=== PATIENT | male | born 1965 | race Caucasian/White ===

== ENCOUNTER 2023-01-24 15:36 | Emergency (ER) | payer OTHER, SELFPAY ==
[2023-01-24 15:42] VITALS: BP 160/104; PULSE 88; RESP 18; TEMP 37.2; O2SAT 96; BMI 33.2
[2023-01-24 15:58] VITALS: O2SAT 98
--- NOTE | 2023-01-24 16:25 | ED.GENADUL1 ---
HPI - General Adult General Chief complaint: Skin/Abscess/Foreign Body Stated complaint: poss faial infection Time Seen by Provider: 01/24/23 16:11 Source: patient Mode of arrival: walk-in History of Present Illness HPI narrative: swelling of the right cheek near the right nasal fold developed about 4 days ago. the right cheek and face has been slowly getting more swollen and became painful yesterday. It was much worse today so he decided to come to the ED for evaluation. No fever or chills. No toothache or dental complaints. He denied any involvement of the ears or eyes. No outer skin rash. Related Data Home Medications Medication Instructions Recorded Confirmed amlodipine 5 mg tablet 5 mg PO DAILY 01/24/23 01/24/23 buprenorphine 8 mg-naloxone 2 mg 1 film buccal DAILY 01/24/23 01/24/23 sublingual film clonidine HCl 0.1 mg tablet 0.1 mg PO BID 01/24/23 01/24/23 lisinopril 40 mg tablet 40 mg PO DAILY 01/24/23 01/24/23 naratriptan 2.5 mg tablet 2.5 mg PO DAILY PRN migraine 01/24/23 01/24/23 headache omeprazole 40 mg capsule,delayed 40 mg PO DAILY 01/24/23 01/24/23 release pramipexole 0.5 mg tablet 0.5 mg PO .QHS PRN migrain 01/24/23 01/24/23 prednisone 5 mg tablet 15 mg PO DAILY 01/24/23 01/24/23 sumatriptan succinate 100 mg tablet 100 mg PO DAILY PRN migraine 01/24/23 01/24/23 headache Previous Rx's Medication Instructions Recorded clindamycin HCl 150 mg capsule 450 mg PO QID 10 days #120 caps 01/24/23 (Cleocin HCl) oxycodone-acetaminophen 5 mg-325 1 tab PO Q6H PRN pain #20 tabs 01/24/23 mg tablet (Percocet) Allergies Allergy/AdvReac Type Severity Reaction Status Date / Time No Known Drug Allergies Allergy Verified 01/24/23 15:41 Exam Narrative Exam Narrative: Nurses notes and vital signs reviewed and patient is not hypoxic. afebrile General: Well-appearing and in no apparent distress. Skin: Warm, dry, no pallor noted. Head: Swelling and tenderness noted to the right cheek, extending from the right nasal fold to underneath the right eye and down to the right jaw. Remainder of the face and scalp are normocephalic, atraumatic. Neck: Supple, non-tender. Eye: Pupils are equal, round and EOMI. No scleral icterus. Ears, Nose, Mouth, and Throat: TM are clear, no nasal mucosal hypertrophy. Oral mucosa is moist, no posterior oropharynx erythema, uvula is mid-line Cardiovascular: Regular Rate and Rhythm without murmur, gallop or rub. Respiratory: No accessory muscle use or respiratory distress. Lungs are clear to auscultation, no wheezing, rales or rhonchi Musculoskeletal: normal ROM Neurological: A&O x4. No cranial nerve dysfunction observed. No truncal ataxia. Moves all extremities. Sensation intact. Psychiatric: Cooperative and interactive. Normal mood and affect. Constitutional Vital Signs - 24 hr 01/24/23 15:42 01/24/23 15:58 01/24/23 17:54 Temperature 99.0 F Pulse Rate 84 Pulse Rate [Monitor] 88 Respiratory Rate 18 16 Blood Pressure 163/94 H Blood Pressure [Left Arm] 160/104 H Pulse Oximetry 96 98 94 L Oxygen Delivery Method Room Air Room Air Course Vital Signs Vital signs: Vital Signs Temperature 99.0 F 01/24/23 15:42 Pulse Rate 88 01/24/23 15:42 Respiratory Rate 18 01/24/23 15:42 Blood Pressure 160/104 H 01/24/23 15:42 Pulse Oximetry 96 01/24/23 15:42 Oxygen Delivery Method Room Air 01/24/23 15:42 Temperature 99.0 F 01/24/23 15:42 Pulse Rate 84 01/24/23 17:54 Respiratory Rate 16 01/24/23 17:54 Blood Pressure 163/94 H 01/24/23 17:54 Pulse Oximetry 94 L 01/24/23 17:54 Oxygen Delivery Method Room Air 01/24/23 15:58 Medical Decision Making MDM Narrative Medical decision making narrative: peripheral IV established and blood drawn and sent for testing. He was given IV Toradol for pain. CT facial bones with IV contrast was obtained to further evaluate the patient's symptoms. CT revealed cellulitis of the right cheek along with a 1.9cm abscess. WBC elevated at 13k. CRP elevated but ESR normal. Patient received IV Clindamycin. We discussed admission but he wanted to go home and see how it improved at home - we discussed need for ED return if he worsens. Prescribed clindamycin and percocet for home use. he was instructed of the need to see a dentist since it appears to be the source of his infection. Lab Data Lab results reviewed: Yes I reviewed the patient's lab results Labs: Lab Results 01/24/23 Range/Units 16:30 WBC 13.9 H (4.0-11.0) 10^3/uL RBC 5.54 (4.70-6.10) 10^6/uL Hgb 16.7 (14.0-18.0) g/dL Hct 49.1 (42.0-54.0) % MCV 88.6 (80.0-94.0) fL MCH 30.1 (25.9-34.0) pg MCHC 34.0 (29.9-35.2) g/dL RDW 12.3 (11.0-15.0) % Plt Count 228 (150-450) 10^3/uL MPV 8.9 L (9.5-13.5) fL Neut % (Auto) 75.0 (43.0-75.0) % Lymph % (Auto) 12.9 L (20.5-60.0) % [place] % (Auto) 9.5 (1.7-12.0) % Eos % (Auto) 1.9 (0.9-7.0) % Baso % (Auto) 0.3 (0.2-2.0) % Neut # (Auto) 10.4 H (1.4-6.5) 10^3/uL Lymph # (Auto) 1.8 (1.2-3.8) 10^3/uL [place] # (Auto) 1.3 H (0.3-0.8) 10^3/uL Eos # (Auto) 0.3 (0.0-0.7) 10^3/uL Baso # (Auto) 0.0 (0.0-0.1) 10^3/uL Abs Immat Gran (auto) 0.05 H (0.00-0.03) 10^3/uL Imm/Tot Granulo (auto) 0.4 (0.0-0.5) % ESR 13 (<=20) mm/hr C-Reactive Protein 4.8 H (<=1.0) mg/dL Imaging Data ct facial w contrast: Radiologist's impression: Patient Name: AIMEE MADISON MRN: [id number] date: 1965 Sex: M Assigned Patient Location: ER Current Patient Location: ER Accession/Order Number: [id number] Exam Date: 01/24/2023 16:55 Report Date: 01/24/2023 17:30 At the request of: LICHA PAZ Procedure: CT facial bones w con EXAM: CT facial bones w con TECHNIQUE: Axial CT images were obtained through the facial bones along with sagittal and coronal reformatted images. Intravenous contrast was administered. Dose reduction techniques were achieved by using automated exposure control and/or adjustment of mA and/or kV according to patient size and/or use of iterative reconstruction technique. HISTORY: right facial swelling and pain COMPARISON: None. FINDINGS: Fracture: No fracture. 5 mm periapical lucency of the right first maxillary incisor. Orbits: Globes are intact. Extraocular musculature is unremarkable and symmetric. There is no retrobulbar hematoma. Soft tissues: Infiltration of subcutaneous fat superficial to the right side of the mandible. Soft tissue swelling anteriorly over the maxilla. fluid attenuation structure along the anterior surface of the midline maxilla measuring 19 x 8 mm. Sinuses: Small polypoid mucosal thickening of the left maxillary sinus. IMPRESSION: Subcutaneous soft tissue thickening and infiltration anterior to the maxilla and to the right of the mandible consistent with cellulitis. There is a 19 mm low-attenuation structure along the anterior surface of the midline maxilla, suspicious for abscess. Periapical lucency of the right first maxillary incisor suggesting odontogenic source for inflammation/infection. Electronically authenticated by: MAGDI STAPLES Date: 01/24/2023 17:30 Discharge Plan Discharge Chief Complaint: Skin/Abscess/Foreign Body Clinical Impression: Cellulitis and abscess of face, Abscess, periapical Patient Disposition: Home, Self-Care Time of Disposition Decision: 18:22 Prescriptions / Home Meds: New clindamycin HCl [Cleocin HCl] 150 mg capsule 450 mg PO QID 10 Days Qty: 120 0RF oxycodone-acetaminophen [Percocet] 5-325 mg tablet 1 tab PO Q6H PRN (Reason: pain) Qty: 20 0RF No Action amlodipine 5 mg tablet 5 mg PO DAILY buprenorphine-naloxone 8-2 mg film 1 film buccal DAILY clonidine HCl 0.1 mg tablet 0.1 mg PO BID lisinopril 40 mg tablet 40 mg PO DAILY naratriptan 2.5 mg tablet 2.5 mg PO DAILY PRN (Reason: migraine headache) pramipexole 0.5 mg tablet 0.5 mg PO .QHS PRN (Reason: migrain) prednisone 5 mg tablet 15 mg PO DAILY sumatriptan succinate 100 mg tablet 100 mg PO DAILY PRN (Reason: migraine headache) omeprazole 40 mg capsule,delayed release(DR/EC) 40 mg PO DAILY Instructions: Dental Abscess (ED), Cellulitis (ED), Abscess (ED) Additional Instructions: needs referral to a dentist Stand Alone Forms: Portal Instructions Referrals: Physician,Non-Staff, MD [Primary Care Provider] - 1 week
[2023-01-24] MEDS: KETOROLAC TROMETHAMINE 30 MG/ML VIAL IVP (16:41)
[2023-01-24 16:47] LABS: Basophils Percent Auto 0.3 % (0.2-2.0); Eosinophils Absolute Auto 0.3 10^3/uL (0.0-0.7); Eosinophils Percent Auto 1.9 % (0.9-7.0); Hematocrit 49.1 % (42.0-54.0); Hemoglobin 16.7 g/dL (14.0-18.0); Immature Granulocytes Abs Auto 0.05 10^3/uL (0.00-0.03); Immature Granulocytes Pct Auto 0.4 % (0.0-0.5); Lymphocytes Absolute Auto 1.8 10^3/uL (1.2-3.8); Lymphocytes Percent Auto 12.9 % (20.5-60.0); Mean Corpuscular Hemoglobin 30.1 pg (25.9-34.0); Mean Corpuscular Volume 88.6 fL (80.0-94.0); Mean Platelet Volume 8.9 fL (9.5-13.5); Monocytes Absolute Auto 1.3 10^3/uL (0.3-0.8); Monocytes Percent Auto 9.5 % (1.7-12.0); Neutrophils Absolute Auto 10.4 10^3/uL (1.4-6.5); Platelet Count 228 10^3/uL (150-450); Red Blood Count 5.54 10^6/uL (4.70-6.10); Red Cell Distribution Width 12.3 % (11.0-15.0); White Blood Count 13.9 10^3/uL (4.0-11.0)
[2023-01-24 16:52] LABS: C Reactive Protein 4.8 mg/dL (<=1.0)
[2023-01-24 17:03] LABS: Erythrocyte Sedimentation Rate 13 mm/hr (<=20)
--- NOTE | 2023-01-24 17:07 | CT_ITS ---
The [address] [address] Patient Name: AIMEE MADISON MRN: [id number] date: 1965 Sex: M Assigned Patient Location: ER Current Patient Location: Accession/Order Number: [id number] Exam Date: 01/24/2023 16:55 Report Date: 01/24/2023 17:30 At the request of: LICHA PAZ Procedure: CT facial bones w con EXAM: CT facial bones w con TECHNIQUE: Axial CT images were obtained through the facial bones along with sagittal and coronal reformatted images. Intravenous contrast was administered. Dose reduction techniques were achieved by using automated exposure control and/or adjustment of mA and/or kV according to patient size and/or use of iterative reconstruction technique. HISTORY: right facial swelling and pain COMPARISON: None. FINDINGS: Fracture: No fracture. 5 mm periapical lucency of the right first maxillary incisor. Orbits: Globes are intact. Extraocular musculature is unremarkable and symmetric. There is no retrobulbar hematoma. Soft tissues: Infiltration of subcutaneous fat superficial to the right side of the mandible. Soft tissue swelling anteriorly over the maxilla. fluid attenuation structure along the anterior surface of the midline maxilla measuring 19 x 8 mm. Sinuses: Small polypoid mucosal thickening of the left maxillary sinus. IMPRESSION: Subcutaneous soft tissue thickening and infiltration anterior to the maxilla and to the right of the mandible consistent with cellulitis. There is a 19 mm low-attenuation structure along the anterior surface of the midline maxilla, suspicious for abscess. Periapical lucency of the right first maxillary incisor suggesting odontogenic source for inflammation/infection. Electronically authenticated by: MAGDI STAPLES Date: 01/24/2023 17:30
[2023-01-24 17:54] VITALS: BP 163/94; PULSE 84; RESP 16; O2SAT 94
[2023-01-24] MEDS: CLINDAMYCIN PHOSPHATE/D5W 900 MG/50 ML PIGGYBACK 100 MG IV (18:31)
== END 2023-01-24 19:01 | disposition home or self-care (01) ==
PROVIDERS: Emergency Provider Emergency Medicine
DX: L02.01 Cutaneous abscess of face (principal); L03.211 Cellulitis of face; K04.7 Periapical abscess without sinus; Z79.899 Other long term (current) drug therapy
CPT/HCPCS: 36415; 70487; 85025; 85652; 86140; 96374; 96375; 99285; Q9967

== ENCOUNTER 2025-04-01 22:18 | Emergency (ER) | payer OTHER, SELFPAY ==
--- OUTSIDE RECORDS SUMMARY | 2024-06-15 12:42 | XMS_ITS ---
Author Organization The [facility] in [place] Address [address] [place] [address] Care Team Providers Care Lunchroom Aide Name Role Phone Atul Martin Primary Care Provider REASON FOR VISIT needs yearly appt Encounters Encounter Location Date Provider Diagnosis [facility] [address] [place] [address] 06/15/2024 Atul Martin Plan Of Treatment No Information Progress Notes * Varun KRISHNAN EDOB:[birth year] (59 yo M)Acc No.[id number]:06/15/2024 Patient: Morgan Varun CASTREJON :1965 A ge:59 Y S ex:Male Address:[address] [place], [address] * true * Date: Generated for Joe kelley/Delroyg/eTransmitting on: 0 04/01/2025 10:40 PM EDT
--- OUTSIDE RECORDS SUMMARY | 2024-07-07 06:15 | XMS_ITS ---
Author Organization The [facility] in [place] Address [address] [place] [address] Care Team Providers Care Voice Teacher Name Role Phone Atul Martin Primary Care Provider Allergies No Known Allergies REASON FOR VISIT yearly check- bilateral feet swelling for the last month, medication refills Medications Medication SIG (Take, Route, Frequency, Duration) Notes Start Date End Date Status Omeprazole 20 MG 1 capsule 1/2 to 1 h our before morning meal Orally BID 07/07/2024 Active Coreg 12.5 MG 1 tablet with food O rally Twice a day for 30 days 07/07/2024 Active SUMAtriptan Succinate 6 MG/0.5ML inject Subcutaneous Once a day prn for pain for 30 days Active SUMAtriptan Succinate 100 MG 1 tablet at least 2 hours between doses as needed Orally Twice a day Active Buprenorphine HCl-Naloxone HCl 8-2 MG DISSOLVE 1 AND 1/2 FILMS IN MOUTH ONCE A DAY NEEDED Sublingual for 28 Days Active predniSONE 5 MG 3 tablets Oral once daily for 30 days Active Lisinopril 40 MG 1 tablet Orally Once a day for 30 days Active Social History Tobacco Use: Social History Observation Description Date Details (start date - stop date) Never Smoker NA - NA Tobacco Use/Smoking Question Answer Notes Patient is a nonsmoker AUDIT-C (Standard) Question Answer Notes Did you have a drink containing alcohol in the p ast year? No Points 0 Interpretation Negative Vital Signs Weight 269.8 lbs 07/07/2024 Height 72 in 07/07/2024 Blood pressure systolic 160 mm Hg 07/07/20 24 Blood pressure diastolic 104 mm Hg 024 BMI 36.59 kg/m2 07/07/2024 Encounters Encounter Location Date Provider Diagnosis [address] [address] 07/07/2024 Atul Mcguirecale Well adult Z00.0 0 Assessments Encounter Date Diagnosis (ICD Code) Assessment Notes Treatment Notes Treatment Clinical Notes Section Notes 07/07/2024 Well adult (ICD-10 - Z00.00) compression hopse for swelling stoping in next week to check on BP Plan Of Treatment Medication Medication Name Sig Start Date Stop Date Notes Coreg 12.5 MG 1 tablet with food O rally Twice a day for 30 days 07/07/2024 amLODIPine Besylate 10 MG TAKE 1 TABLET BY MOUTH EVERY DAY FOR 30 DAYS Treatment Notes Assessment Notes Well adult compression hopse for swelling stoping in next week to check on BP Pending Test Test Name Order Date CMP (COMPLETE METABOLIC PANEL) 4 HEMOGLOBIN A1C (GLYCO) 07/07/2024 INSULIN, TOTAL 07/07/2024 LIPID PANEL (CHOL/TRIG/HDL/LDL) 07/07/20 24 CBC WITH DIFF 07/07/2024 PSA, TOTAL 07/07/2024 STOOL OCCULT BLOOD 07/07/2024 BNP 07/07/2024 THYROID PANEL (T4/TSH/FREE T3) 4 Progress Notes * Varun KRISHNAN EDOB:[birth year] (59 yo M)Acc No.[id number]:07/07/2024 Progress Note Patient: Varun ERIC Provider: Cherie Martin ([facility])MD :1965 A ge:59 Y S ex:Male Date:07/07/2024 Address:[address] [place] [address], [place]IMBERLY GOME[place]X [id number] Check In:10:14 AM ESTCheck O ut:11:30 AM EST Subjective: * Chief Complaints: * Y early check- bilateral feet swelling for the last monthMedication refills * HPI: D epression Screening: PHQ-2 (2015 Edition) L ittle interest or pleasure in doing things??Not at all F eeling down, depressed, or hopeless? N ot at all T otal Score 0 swelng in feet - getting worse as days goe along but still present in Am no ceballos and no orthopnea. * ROS: E ENT: hearing changes d enies. v isual changes d enies.?non-healing mouth sores d enies. s wollen glands or neck lumps d enies. h oarseness d enies. s ore throat d enies. d ifficulty swallowing d enies. n ose bleeds d enies. n zaid congestion d enies. e ar ache d enies. e ar discharge?denies. r inging in ears d enies. l ight sensitivity d enies. e ye pain d enies. b lurring d enies. e ye irritation d enies. d ouble vision d enies.?vision loss d enies. G eneral/Constitutional: Sweats: D enies. F atigue d enies. S leep problems d enies. A norexia d enies. M alaise d enies. W eight loss d enies.?Fatigue or Weakness d enies. F ever or Chills d enies. C ardiovascular: Shortness of Breath w/lying flat d enies. L ightheadedness/dizziness d enies. C hest tightness/ heavy pressure d enies. S welling of legs, ankles, or feet d enies. W aking up with shortness of breath d enies. C hest pain denies. P alpitations d enies. W eight gain d enies. R espiratory: Chronic or frequent cough d enies. C oughing up blood?denies. D ifficulty breathing d enies. P roductive cough d enies. S noring?denies. S hortness of breath that awakens from sleep (PND) d enies. C hest pain d enies. S putum production d enies. W heezing d enies. M usculoskeletal: Joint pain d enies. J oint Fluid d enies. B ack pain d enies. K nee pain d enies. N ninoska pain d enies. J oint Stiffness d enies. M uscle cramps d enies. W eakness of muscles d enies. A rthritis d enies. M uscle aches d enies. P ain in shoulder(s) d enies. S wollen joints d enies. 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 M other: , kidney ca, diagnosed with Other malignant neoplasm of unspecified site. Brother(s): alive. S ister(s): alive. S on(s): alive. D aughter(s): alive. 2 brother(s) , 5 sister(s) - healthy. 3 son(s) , 1 daughter(s) - healthy. . * Social History: T obacco Use: T obacco Use/Smoking P atient is a n onsmoker D rug/Alcohol: A ANN MARIE-C (Standard) D id you have a drink containing alcohol in the past year? N o P oints 0 I nterpretation N egative * Medications: T akingamLODIPine Besylate 10 MG Tablet TAKE 1 TABLET BY MOUTH EVERY DAY FOR 30 DAYS Buprenorphine HCl-Naloxone HCl 8-2 MG Film DISSOLVE 1 AND 1/2 FILMS IN MOUTH ONCE A DAY NEEDED Sublingual Lisinopril 40 MG Tablet 1 tablet Orally Once a day Omeprazole 20 MG Capsule Delayed Release 1 capsule 1/2 to 1 hour before morning meal Orally BID predniSONE 5 MG Tablet 3 tablets Oral once daily SUMAtriptan Succinate 100 MG Tablet 1 tablet at least 2 hours between doses as needed Orally Twice a day SUMAtriptan Succinate 6 MG/0.5ML Solution inject Subcutaneous Once a day prn for pain Taking amLODIPine Besylate 10 MG Tablet TAKE 1 TABLET BY MOUTH EVERY DAY FOR 30 DAYS Taking Buprenorphine HCl-Naloxone HCl 8-2 MG Film DISSOLVE 1 AND 1/2 FILMS IN MOUTH ONCE A DAY NEEDED Sublingual Taking Lisinopril 40 MG Tablet 1 tablet Orally Once a day Taking Omeprazole 20 MG Capsule Delayed Release 1 capsule 1/2 to 1 hour before morning meal Orally BID Taking predniSONE 5 MG Tablet 3 tablets Oral once daily Taking SUMAtriptan Succinate 100 MG Tablet 1 tablet at least 2 hours between doses as needed Orally Twice a day Taking SUMAtriptan Succinate 6 MG/0.5ML Solution inject Subcutaneous Once a day prn for pain DiscontinuedcloNIDine HCl 0.1 MG Tablet 1 tablet Orally BID Medication List reviewed and reconciled with the patientDiscontinued cloNIDine HCl 0.1 MG Tablet 1 tablet Orally BID Medication List reviewed and reconciled with the patient * Allergies: N .K.D.A.no[Allergies Verified] Objective: * Vitals: W t:269.8lbs, Ht: 72 in, BP:160/104mm Hg, BMI:36.59Index, Ht-cm: 182.88 cm, Wt-k.38 kg. * Examination: P hysical Exam: GENERAL: w ell developed, well nourished, in no acute distress. HEAD: n ormocephalic/atraumatic. EYES: p upils equal, round and reactive to light, conjunctivae and sclerae normal. EARS: n o deformity or lesion of external ear, canals and TM appear normal bilaterally, TM's intact, not inflamed with normal light reflex, hearing grossly normal to conversational speech. NOSE: n o deformity, discharge, inflammation, or lesions.? MOUTH: m ucous membranes moist, normal oropharynx and posterior pharynx without lesions or exudates, tongue normal, dentition normal. NECK: n ninoska supple, no masses or palpable cervical nodes, trachea midline, thyroid without nodules, masses, tenderness, or enlargement. CHEST: n o chest wall deformity, no chest wall tenderness.? LUNGS: n ormal respiratory effort and clear to auscultation, no wheezes, rales, or rhonchi, good air exchange. CARDIO: r egular rate and rhythm, normal S1 and S2, nor murmur, rub, or gallop. PULSES: n ormal capillary refill. ABDOMEN: s oft, non-distended, non-tender, no masses. MUSCULOSKELETAL: n o deformity or scoliosis noted, normal range of motion, joints normal, no erythema, edema, effusion, or ecchymosis. EXTREMITY: n o clubbing, cyanosis, edema, or deformity with normal ROM in both upper and lower bilateral extremities. NEUROLOGIC: g rossly normal. SKIN: n o rashes, ulcerations, or suspicious lesions. LYMPH NODES: n o cervical adenopathy, nodes normal. MENTAL STATUS: a lert and oriented x3, normal mood and affect. Assessment: * Assessment: 1. W ell adult - Z00.00 (Primary) Plan: * Treatment: * Procedure Codes: * * Sign off status: Completed Visit Status: C HK (Check Out) true * Provider: Cherie Martin ([facility])MD Date: 1 09/07/2023 Generated for Printi ng/Faparagg/eTransmitting on: 0 04/01/2025 10:40 PM EDT History and Physical Notes * HPI (History of Present Illness) Category Sub-Category Detail Notes Category Not es Depression Screening PHQ-2 (2015 Edition) Little interest or pleasure in doing things?: Not at all swelng in feet - getting worse as days goe along but still present in Am no ceballos and no orthopnea Feeling down, depressed, or hopeless?: N ot at all Total Score: 0 Examination Category Sub-Category Detail Notes Category Not es Physical Exam GENERAL: well developed, well nourished, in no acute distress HEAD: normocephalic/atraum atic EYES: pupils equal, round and reactive to light, conjunctivae and sclerae normal EARS: no deformity or lesi on of external ear, canals and TM appear normal bilaterally, TM's intact, not inflamed with normal light reflex, hearing grossly normal to conversational speech NOSE: no deformity, discha rge, inflammation, or lesions MOUTH: mucous membranes boby st, normal oropharynx and posterior pharynx without lesions or exudates, tongue normal, dentition normal NECK: neck supple, no mass es or palpable cervical nodes, trachea midline, thyroid without nodules, masses, tenderness, or enlargement CHEST: no chest wall deform ity, no chest wall tenderness LUNGS: normal respiratory e ffort and clear to auscultation, no wheezes, rales, or rhonchi, good air exchange CARDIO: regular rate and rhy thm, normal S1 and S2, nor murmur, rub, or gallop PULSES: normal capillary ref ill ABDOMEN: soft, non-distended, non-tender, no masses RECTAL: MUSCULOSKELETAL: no deformity or scol iosis noted, normal range of motion, joints normal, no erythema, edema, effusion, or ecchymosis EXTREMITY: no clubbing, cyanosi s, edema, or deformity with normal ROM in both upper and lower bilateral extremities NEUROLOGIC: grossly normal SKIN: no rashes, ulceratio ns, or suspicious lesions LYMPH NODES: no cervical adenopat hy, nodes normal MENTAL STATUS: alert and oriented x 3, normal mood and affect
[2025-04-01] VITALS (15 sets, daily range): BP systolic 157–228; BP diastolic 106–125; PULSE 56–70; TEMP 36.8; O2SAT 96–99; BMI 38.0
--- OUTSIDE RECORDS SUMMARY | 2025-04-01 22:41 | XMS_ITS | Clinical Summary ---
Author Organization [facility] Address [address] [place] [address] Care Team Providers Care Roto Gravure Press Operator Name Role Phone Unavailable Primary Care Provider Unavailabl e Social History Tobacco Use Types Packs/Day Years Used Date Smoking Tobacco: Never Assessed Sex and Gender Information Value Date Recorded Sex Assigned at Not on file Legal Sex Male 12:23 AM EDT Gender Identity Not on file Sexual Orientation Not on file Plan of Treatment Not on file
--- OUTSIDE RECORDS SUMMARY | 2025-04-01 22:41 | XMS_ITS | Clinical Summary ---
Author Organization [facility] [employer] Address [address] [place] [id number] Care Team Providers Care Delivery Of [employer] Name Role Phone Carlos Martin MD Primary Care Provider [phone] Allergies No known active allergies Medications lisinopril 40 MG tablet Take 25 mg by mouth daily. 02/10/2021 Active predniSONE 5 MG tablet Take 15 mg by mouth daily. 02/14/2021 Active traMADol 50 MG tablet Take 50 mg by mouth 2 times daily. 01/17/2021 Active topiramate 100 MG tablet Take 100 mg by mouth daily. 02/13/2021 Active tiZANidine 4 MG tablet TAKE 1 TO 2 TABLETS BY MOUTH EVERY DAY AT BEDTIME NEEDED 02/14/2021 Active SUMAtriptan 100 MG tablet TAKE 1 TABLET BY MOUTH EVERY 2 HOURS *MAX 2 DOSES PER DAY* 02/13/2021 Active naratriptan 2.5 MG tablet TAKE 1 TABLET AT ONSET OF HEADACE CAN REPEAT IN 2 HOURS MAX 2/DAY 02/10/2021 Active esomeprazole (NexIUM) [address] capsule 1 capsule Activ e Active Problems Problem Noted Date Diagnosed Date Obesity (BMI 30.0-34.9) 02/20/2021 Social History Tobacco Use Types Packs/Day Years Used Date Smoking Tobacco: Never Smokeless Tobacco: Never Alcohol Use Standard Drinks/Week Comments Never 0 (1 standard drink = 0.6 oz pur e alcohol) Sex and Gender Information Value Date Recorded Sex Assigned at Not on file Legal Sex Male 12:56 PM EDT Gender Identity Not on file Sexual Orientation Not on file Last Filed Vital Signs Vital Sign Reading Time Taken Comments Blood Pressure 144/92 02/20/2021 9:57 AM EDT Pulse 79 02/20/2021 9:57 AM EDT Temperature 36.3 C (97.3 F) 02/20/2021 9:57 AM EDT Respiratory Rate - - Oxygen Saturation 97% 02/20/2021 9:57 AM EDT Inhaled Oxygen Concentration - - Weight 114.2 kg (251 lb 12.8 oz) 02/20/2021 9:57 AM EDT Height 182.9 cm (6') 02/20/2021 9:57 AM EDT Body Mass Index 34.15 02/20/2021 9:57 AM EDT Plan of Treatment Health Maintenance Due Date Last Done Comments TETANUS 1965 HIV SCREENING DISCUSSION 1982 HEP B VACCINE (1 of 3 - 19+ 3-dose series) 1986 TDAP (ADULT) 1986 LIPID SCREENING 2007 COLORECTAL CANCER SCREENING DISCUSSION 2012 PNEUMOCOCCAL VACCINE SERIES (1 of 1 - PCV) 2017 ZOSTER (SHINGLES) VACCINE (1 of 2) 2017 PROSTATE CANCER SCREENING DISCUSSION 2022 COVID-19 VACCINE (3 - season) 2024, 11/03/2020 INFLUENZA VACCINE (#1) 2025 05/27/2020, 2018 HEPATITIS C VIRUS SCREENING Completed 02/20/2021 Procedures Procedure Name Priority Date/Time Associated Diagnosis Comments HEPATITIS BATTERY, CHRONIC Routine 02/20/2021 11:19 AM EDT High risk medication use from Last 3 Months or Most Recently Relevant to Health Maintenance Results * HEPATITIS BATTERY, CHRONIC (02/20/2021 11:19 AM EDT) Hepatitis B Surface Ag Negative Negative 02/20/2021 5:21 PM EDT [facility] Hep B Surface Ab Negative Negative 02/20/2021 5:21 PM EDT [facility] Hep B Core Ab,Total (IgG+IgM) Negative Negative 02/20/2021 5:21 PM EDT [facility] Hepatitis C Antibody Negative Negative 02/20/2021 5:21 PM EDT [facility] Blood Venipuncture / Unknown 02/20/2021 11:19 AM EDT 02/20/2021 11:24 AM EDT us Georgiana Flores [employer]EDUCATIONAL SPEECH LANGUAGE CLINICIAN IMMUNOLOGY ORDERABLES F inal Result [facility] [address] [place] [address] from Last 3 Months or Most Recently Relevant to Health Maintenance Insurance [facility] Plan Care Teams Delivery Of Shopping News Relationship Specialty Start Date End Date Carlos Martin MD PCP - General Family Medicine 02/20/21
[2025-04-01] MEDS: 0.9 % SODIUM CHLORIDE 1,000 ML 1000 ML IV (22:57)
[2025-04-01] MEDS: METOCLOPRAMIDE HCL 10 MG/2 ML VIAL IVP (22:58)
[2025-04-01] MEDS: DIPHENHYDRAMINE HCL 50 MG/ML VIAL 12.5 MG IVP (23:00)
[2025-04-01] MEDS: KETOROLAC TROMETHAMINE 30 MG/ML VIAL IVP (23:00)
[2025-04-01] MEDS: METHYLPREDNISOLONE SOD SUCC PF 125 MG/2 ML VIAL IVP (23:02)
[2025-04-01] MEDS: HYDRALAZINE HCL 20 MG/ML VIAL 10 MG IVP (23:02)
[2025-04-01 23:08] LABS: Hematocrit 48.4 % (42.0-54.0); Hemoglobin 16.5 g/dL (14.0-18.0); Immature Granulocytes Abs Auto 0.02 10^3/uL (0.00-0.03); Immature Granulocytes Pct Auto 0.2 % (0.0-0.5); Lymphocytes Absolute Auto 1.9 10^3/uL (1.2-3.8); Mean Corpuscular HGB Conc 34.1 g/dL (29.9-35.2); Mean Corpuscular Hemoglobin 29.6 pg (25.9-34.0); Mean Corpuscular Volume 86.7 fL (80.0-94.0); Platelet Count 249 10^3/uL (150-450); Red Blood Count 5.58 10^6/uL (4.70-6.10); White Blood Count 10.4 10^3/uL (4.0-11.0)
--- NOTE | 2025-04-01 23:12 | PC.NURSE ---
Complains of elevated blood pressure. Headache early in day with nausea and vomiting. History of migraine headache's.
[2025-04-01 23:20] LABS: Alanine Aminotransferase 38 U/L (16-63); Albumin Globulin Ratio 1.2; Albumin Level 3.6 g/dL (3.4-5.0); Alkaline Phosphatase 67 U/L (46-116); Anion Gap 14.3; Aspartate Amino Transferase 19 U/L (15-37); Blood Urea Nitrogen 24.0 mg/dL (7.0-18.0); Calcium 9.1 mg/dL (8.5-10.1); Carbon Dioxide 25.1 mmol/L (21.0-32.0); Chloride 105 mmol/L (98-107); Estimated GFR (African America >60 (>=60 mL/min/1.73m^2); Estimated GFR (Non-African Ame >60 (>=60 mL/min/1.73m^2); Globulin 3.1 g/dL; Glucose 125 mg/dL (74-106); Potassium 4.4 mmol/L (3.5-5.1); Sodium 140 mmol/L (136-145); Total Protein 6.7 g/dL (6.4-8.2)
--- NOTE | 2025-04-01 23:23 | ECG_ITS ---
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
--- NOTE | 2025-04-01 23:31 | ED.GENADUL1 ---
HPI HPI - General Adult General Chief complaint: Recheck/Abnormal Lab/Rx Stated complaint: HIGH BLOOD PRESSURE Time Seen by Provider: 04/01/25 22:28 Source: patient Mode of arrival: walk-in History of Present Illness HPI narrative: This 60-year-old male with a history of hypertension and migraine headaches presents for evaluation of a migraine headache that started earlier today. He states he feels terrible with a throbbing generalized headache associated with nausea and dry heaves. He denies any thunderclap presentation of the headache. He has no fever. He has no neck pain or rigidity. He states he took a sumatriptan this morning but the headache has persisted despite that. His blood pressure is also been elevated. He states that he takes lisinopril and clonidine but his MAR also shows amlodipine. He denies any chest pain or shortness of breath. He has no abdominal pain just nausea and dry heaves. He has no focal neurologic weakness numbness or tingling, slurred speech blurred vision or confusion. Related Data Home Medications ?Medication ?Instructions ?Recorded ?Confirmed amlodipine 5 mg tablet 5 mg PO DAILY 01/24/23 04/01/25 buprenorphine 8 mg-naloxone 2 mg 1 film buccal DAILY 01/24/23 04/01/25 sublingual film clonidine HCl 0.1 mg tablet 0.1 mg PO BID 01/24/23 04/01/25 lisinopril 40 mg tablet 40 mg PO DAILY 01/24/23 04/01/25 naratriptan 2.5 mg tablet 2.5 mg PO DAILY PRN migraine 01/24/23 04/01/25 headache omeprazole 40 mg capsule,delayed 40 mg PO DAILY 01/24/23 04/01/25 release pramipexole 0.5 mg tablet 0.5 mg PO .QHS PRN migrain 01/24/23 01/24/23 prednisone 5 mg tablet 15 mg PO DAILY 01/24/23 01/24/23 sumatriptan succinate 100 mg tablet 100 mg PO DAILY PRN migraine 01/24/23 04/01/25 headache carvedilol 12.5 mg tablet 12.5 mg PO Q12H 04/01/25 04/01/25 Previous Rx's ?Medication ?Instructions ?Recorded clindamycin HCl 150 mg capsule 450 mg (3 x 150 mg) PO QID 10 days 01/24/23 (Cleocin HCl) #120 caps oxycodone-acetaminophen 5 mg-325 1 tab PO Q6H PRN pain #20 tabs 01/24/23 mg tablet (Percocet) Allergies Allergy/AdvReac Type Severity Reaction Status Date / Time No Known Drug Allergies Allergy Verified 04/01/25 22:24 Opioid HPI Opioid Management Most Recent Opioid Data: Last Pain Scale 10 Today, 01:28 Last ED Pain Assessment Today, 01:28 Review of Systems ROS Status of ROS 10 or more systems reviewed and unremarkable except as noted in history and below PFSH PFSH Social History Little interest or pleasure in doing things: not at all Feeling down, depressed, or hopeless: not at all Exam Narrative Exam Narrative: Vital signs and Nursing Notes reviewed: Patient is afebrile with normal pulse, blood pressure is elevated at 213/111, he is not hypoxic with pulse ox of 99% on room air General: Awake, alert, oriented, well-appearing overweight adult male with dry heaves, no respiratory distress, GCS 15 HEENT: Normocephalic atraumatic, mucous membranes are moist and pink, eyes are clear, normal conjunctiva, no photophobia appreciated pupils are equal and reactive vision is grossly intact, posterior pharynx is normal in appearance. Neck: Supple, no meningeal signs, no tenderness or pulsatile masses appreciated Chest: Lungs are clear to auscultation with good air entry, there is no wheezing rhonchi or rales appreciated no accessory muscle use, patient is speaking in complete sentences-no chest wall tenderness to palpation CVS: Regular rate and rhythm S1-S2, no murmurs rubs or gallops, pulses are brisk and equal bilaterally ABD: Soft, nondistended, nontender, no rebound guarding or rigidity, bowel sounds are normal, no pulsatile masses appreciated Extremities: Moving all extremities, no lower extremity tenderness or swelling noted, negative Homans' sign, pulses are brisk and equal bilaterally Skin: Normal in appearance without rash,pallor, petechiae or purpura Neuro: No focal deficits; speech is clear, faro dealer strength is intact, upper and lower extremity strength and sensation is intact Constitutional Vital Signs, click to edit/add: Last Vital Signs Temp 98.3 F 04/01/25 22:24 Pulse 67 04/02/25 02:45 Resp 18 04/02/25 02:45 BP 172/92 H 04/02/25 02:31 Pulse Ox 97 04/02/25 02:45 O2 Del Method Room Air 04/01/25 22:24 Course Vital Signs Vital signs: Vital Signs Temperature 98.3 F 04/01/25 22:24 Pulse Rate 70 04/01/25 22:24 Respiratory Rate 20 04/01/25 22:24 Pulse Oximetry 97 04/01/25 22:24 Oxygen Delivery Method Room Air 04/01/25 22:24 Temperature 98.3 F 04/01/25 22:24 Pulse Rate 67 04/02/25 02:45 Respiratory Rate 18 04/02/25 02:45 Blood Pressure 172/92 H 04/02/25 02:31 Pulse Oximetry 97 04/02/25 02:45 Oxygen Delivery Method Room Air 04/01/25 22:24 Medical Decision Making MDM Narrative Medical decision making narrative: This 60-year-old male with a history of hypertension and migraine headaches presents for evaluation of a migraine headache that started earlier today and elevated blood pressure. He states he did take his blood pressure medications earlier in the day but his head is throbbing. He is also having photophobia and dry heaves. He took a sumatriptan earlier today without significant improvement. Upon arrival he was noted to have an elevated blood pressure. His neuroexam was normal. He was somewhat diaphoretic. EKG done upon arrival is a sinus rhythm at 54 bpm with no acute changes. An IV was placed and he was medicated with IV fluids, Solu-Medrol, Benadryl, Reglan and Toradol. He was given additional IV Benadryl due to akathisia from the Reglan but his headache did somewhat improve. He was given 10 mg of IV hydralazine for the elevated blood pressure with mild improvement in his symptoms however his blood pressure remained markedly elevated and he was given an additional 10 mg of IV hydralazine and 0.1 mg of clonidine. Routine labs including cardiac labs were ordered. He has a normal white count and stable hemoglobin. Electrolytes are normal. Troponin is normal. It stayed elevated and he was reevaluated multiple times. He states he is now feeling more anxious and short of breath. He was medicated with a dose of oral Valium. A chest x-ray was ordered. He was given 10 mg of IV labetalol in addition to the clonidine and hydralazine. The patient is on Suboxone and I did not feel that treatment with narcotics would benefit him at this time. I discussed this with the patient and he states that after the Valium and additional blood pressure medication he is starting to feel better. His blood pressure manually is 150/98. His neuroexam is unchanged and remains normal. Delta troponin and D-dimer are both normal. 1 view chest x-ray shows mild cardiomegaly with a normal mediastinum and no sign of fluid overload. Delta troponin and D dimer are both normal. I offered him admission due to his markedly elevated blood pressure and migraine headache but he declines stating that he is feeling much better after the valium and wishes to be discharged home. Patient's son is here with him and will be driving him home. He was encouraged to continue his normal blood pressure medications tomorrow and after his blood pressure closely due to the markedly elevated blood pressure he had upon presentation tonight. Lab Data Lab results reviewed: Yes I reviewed the patient's lab results Labs: Lab Results 04/01/25 04/02/25 Range/Units 22:35 00:53 WBC 10.4 (4.0-11.0) 10^3/uL RBC 5.58 (4.70-6.10) 10^6/uL Hgb 16.5 (14.0-18.0) g/dL Hct 48.4 (42.0-54.0) % MCV 86.7 (80.0-94.0) fL MCH 29.6 (25.9-34.0) pg MCHC 34.1 (29.9-35.2) g/dL RDW 12.6 (11.0-15.0) % Plt Count 249 (150-450) 10^3/uL MPV 9.1 L (9.5-13.5) fL Neut % (Auto) 71.2 (43.0-75.0) % Lymph % (Auto) 17.8 L (20.5-60.0) % Haskell % (Auto) 8.7 (1.7-12.0) % Eos % (Auto) 1.4 (0.9-7.0) % Baso % (Auto) 0.7 (0.2-2.0) % Neut # (Auto) 7.4 H (1.4-6.5) 10^3/uL Lymph # (Auto) 1.9 (1.2-3.8) 10^3/uL Haskell # (Auto) 0.9 H (0.3-0.8) 10^3/uL Eos # (Auto) 0.2 (0.0-0.7) 10^3/uL Baso # (Auto) 0.1 (0.0-0.1) 10^3/uL Abs Immat Gran (auto) 0.02 (0.00-0.03) 10^3/uL Imm/Tot Granulo (auto) 0.2 (0.0-0.5) % D-Dimer 0.41 (<=0.59) mg/L FEU Sodium 140 (136-145) mmol/L Potassium 4.4 (3.5-5.1) mmol/L Chloride 105 (98-107) mmol/L Carbon Dioxide 25.1 (21.0-32.0) mmol/L Anion Gap 14.3 BUN 24.0 H (7.0-18.0) mg/dL Creatinine 0.82 (0.70-1.30) mg/dL Est GFR ( Amer) >60 (>=60 mL/min/1.73m^2) Est GFR (Non-Af Amer) >60 (>=60 mL/min/1.73m^2) BUN/Creatinine Ratio 29.3 Glucose 125 H (74-106) mg/dL Calcium 9.1 (8.5-10.1) mg/dL Total Bilirubin 1.3 H (0.2-1.0) mg/dL AST 19 (15-37) U/L ALT 38 (16-63) U/L Alkaline Phosphatase 67 (46-116) U/L Troponin I High Sens 8.3 8.2 (4.0-76.1) pg/mL Total Protein 6.7 (6.4-8.2) g/dL Albumin 3.6 (3.4-5.0) g/dL Globulin 3.1 g/dL Albumin/Globulin Ratio 1.2 ECG Data Attestation: I personally reviewed and interpreted this ECG as follows: (Sinus rhythm at 54 bpm, voltage criteria for LVH, normal axis, no acute ST segment elevation or T wave inversion) Critical Care Time Critical Care Time Critical Care Time: Yes Total Critical Care Time: 35 Attestation: Due to this patient's presentation with markedly elevated blood pressure and symptoms of a headache possibly related to the elevated blood pressure and the high probability of sudden clinically significant deterioration in his condition he required the highest level of my preparedness to intervene urgently. I provided critical care time including documentation time medication orders and management, multiple doses of IV blood pressure medications, reevaluation, vital sign assessment, ordering and reviewing of all lab tests ordering reviewing of radiographic studies. Aggregate critical care time is 35 minutes including time during which I was engaged in work directly to his care and did not include time spent treating other patients simultaneously Discharge Plan Discharge Chief Complaint: Recheck/Abnormal Lab/Rx Clinical Impression: Headache, migraine, Hypertension, uncontrolled Patient Disposition: Home, Self-Care Time of Disposition Decision: 03:05 Condition: Good Prescriptions / Home Meds: No Action carvedilol 12.5 mg tablet 12.5 mg PO Q12H amlodipine 5 mg tablet 5 mg PO DAILY buprenorphine-naloxone 8-2 mg film 1 film buccal DAILY clonidine HCl 0.1 mg tablet 0.1 mg PO BID lisinopril 40 mg tablet 40 mg PO DAILY naratriptan 2.5 mg tablet 2.5 mg PO DAILY PRN (Reason: migraine headache) pramipexole 0.5 mg tablet 0.5 mg PO .QHS PRN (Reason: migrain) prednisone 5 mg tablet 15 mg PO DAILY sumatriptan succinate 100 mg tablet 100 mg PO DAILY PRN (Reason: migraine headache) omeprazole 40 mg capsule,delayed release(DR/EC) 40 mg PO DAILY clindamycin HCl [Cleocin HCl] 150 mg capsule 450 mg PO QID 10 Days Qty: 120 0RF oxycodone-acetaminophen [Percocet] 5-325 mg tablet 1 tab PO Q6H PRN (Reason: pain) Qty: 20 0RF Print Language: Tamazight Instructions: Migraine Headache (ED), Hypertension (ED) Additional Instructions: Please report a reaction to Reglan in the future when asked about allergies or drug sensitivities. Referrals: Physician,Non-Staff, MD [Primary Care Provider] - 1 week
[2025-04-02] VITALS (22 sets, daily range): BP systolic 148–218; BP diastolic 92–137; PULSE 62–70; O2SAT 96–98
[2025-04-02] MEDS: HYDRALAZINE HCL 20 MG/ML VIAL 10 MG IVP (00:05)
[2025-04-02] MEDS: DIPHENHYDRAMINE HCL 50 MG/ML VIAL 12.5 MG IVP (00:05)
[2025-04-02] MEDS: CLONIDINE HCL 0.1 MG TABLET PO (00:36)
--- NOTE | 2025-04-02 00:47 | XR_ITS ---
[address] [address] Patient Name: AIMEE MADISON MRN: [id number] date: 1965 Sex: M Assigned Patient Location: ER Current Patient Location: Accession/Order Number: [id number] Exam Date: 04/02/2025 00:49 Report Date: 04/02/2025 08:41 At the request of: JULIETA DU MD Procedure: XR chest 1V XR chest 1V 04/02/2025 12:54 AM SIGNS AND SYMPTOMS: ^SOB PROTOCOL: Frontal radiograph of the chest COMPARISON: 11/16/2021 FINDINGS: The trachea is midline. There is cardiomegaly. The lung parenchyma is clear. The bony thorax is intact. Mild degenerative changes are noted in the thoracic spine. XR/XR chest 1V IMPRESSION: There is mild cardiomegaly. No focal consolidation. Impression dictated by: Geoffrey Jack M.D. 04/02/2025 8:41 AM Dictation Location: [place] [address] Electronically authenticated by: [id number] Date: 04/02/2025 08:41
[2025-04-02] MEDS: DIAZEPAM 2 MG TABLET 5 MG PO (01:04)
[2025-04-02] MEDS: LABETALOL HCL 20 MG/4 ML SYRINGE 10 MG IVP (01:04)
== END 2025-04-02 03:28 | disposition home or self-care (01) ==
PROVIDERS: Emergency Provider Emergency Medicine
DX: G43.909 Migraine, unspecified, not intractable, without status migrainosus (principal); I10 Essential (primary) hypertension; R06.02 Shortness of breath; F11.20 Opioid dependence, uncomplicated
CPT/HCPCS: 36415; 71045; 80053; 84484; 85025; 85378; 93005; 96374; 96375; 96376; 99285; J0360; J1200; J1885; J1920; J2405; J2765; J2919